=== PATIENT | female | born 1980 | race Caucasian/White ===

== ENCOUNTER 2018-07-08 19:26 | Emergency (ER) | payer OTHER ==
[~2018-07-08] VITALS: Ht 167.6 cm; Wt 79.4 kg
== END 2018-07-08 20:26 | disposition home or self-care (01) ==
LOC: ED 20:16
DX: H65.02 Acute serous otitis media, left ear (principal); H72.92 Unspecified perforation of tympanic membrane, left ear; H60.502 Unspecified acute noninfective otitis externa, left ear
CPT/HCPCS: 99283